=== PATIENT | male | born 1950 | race Caucasian/White ===

== ENCOUNTER 2019-11-07 23:46 | Emergency (ER) | payer OTHER ==
[~2019-11-07] VITALS: Ht 182.9 cm; Wt 90.7 kg
[2019-11-08 00:42] VITALS: Ht 182.9 cm; Wt 90.7 kg
[2019-11-08 07:03] VITALS: BP 113/75
== END 2019-11-08 07:03 | disposition home or self-care (01) ==
LOC: ED 23:46
DX: F10.129 Alcohol abuse with intoxication, unspecified (principal); Y90.9 Presence of alcohol in blood, level not specified
CPT/HCPCS: 82962